=== PATIENT | male | born 1985 | race Two or more races ===

== ENCOUNTER 2021-01-15 15:14 | Outpatient (CLI) | payer OTHER ==
[2021-01-15 15:49] VITALS: BP 106/69
--- NOTE | 2021-01-15 15:49 | SLEEP CARE CONSULTATION ---
Information from patient questionnaire entered by Amara Varela. I have reviewed and concur with the information entered by Amara Varela. This document represents the service I personally performed and the decisions made by me, Ruthann Jackman ARNP. History of Present Illness Service Date and Time: 01/15/2021 1514 Reason for Visit: New patient Chief Complaint: reports: Unrefreshed sleep, Snoring, Excessive daytime sleepiness, Observed pauses in breathing, Fatigue, Frequent awakenings at night Usual bedtime: 10 PM Time it takes to fall asleep: 30 min Snores at night: Yes Observed to quit breathing while asleep: Yes Sleeps alone due to snoring: No Number of times waking at night: Five Reasons for waking at night: reports: Snoring, Other (Unknown reason). denies: Choking, Gasping for air Toss, Turn, or Twitch while sleeping: Yes Recalls having dreams: Yes Usually gets out of bed at: 05:00 AM; weekends til 8-9 AM Feels refreshed in the morning: No Morning headache: Yes (Usually resolves at 08:00 AM; 3 times a week) Sleepy or fatigued during the day: Yes Ever fallen asleep while driving: No Takes day naps: Yes (trying not to take them, 1-2 times a week) Dreams during day naps: No Prior sleep studies: No Additional HPI information: I had the pleasure of seeing TORRES REGAN today regarding the possibility of him having a sleep disorder. His current complaints are excessive daytime sleepiness, fatigue, frequent night awakenings, insomnia, snoring and observed pauses in breathing. His tells him that he snores a lot at night and in the last few months he has been gasping in his sleep. She can still sleep in same room but has threatened to sleep in a different room. He does not wake up feeling rested most mornings and about 3 times a week he wakes up with a headache. He wakes up 4-5 times during the night for no apparent reason. He has woke himself up snoring. There is no family history of sleep apnea. - Parasomnia Symptoms Ever been unable to move upon waking from sleep: Yes Walks in sleep: No Talks in sleep: Yes Ever acted out dreams in sleep: No Ever felt weak in the knees when startled or emotional: Yes Bothered by creepy, crawly, restless sensations in legs: No Problems with memory or concentration: Yes (both, sometimes takes time to think/concentrate for things) Subjective Initial [place] Sleepiness Scale score: 17 (in 2020) Past Medical History Past Medical History: reports: Anxiety, GERD (used to take medication for this but no longer since his anxiety is reduced) Social History The patient's occupation is . Patient is and lives in [place]. Have you smoked in the past 12 months: No Alcohol use: Yes Alcohol amount and frequency: 3 a month Caffeine use: Yes Caffeine amount and frequency: 3 per week Family History Family history of sleep disordered breathing: Yes Family Hx Sleep Apnea: Father: Snoring Allergies and Home Medications Drug allergies reviewed: Yes (NKDA) Allergy and home medication list: Propanolol Review of Systems Weight gain over past 5 years: 20 Cardiovascular: denies: high blood pressure Gastrointestinal: denies: heartburn Urinary: reports: frequency Neurological: reports: headaches Psychiatric: reports: anxiety. denies: depression, mood disorder Ear/Nose/Throat: reports: wisdom teeth removed. denies: tonsillectomy Endocrine: reports: increased urination Immunologic: reports: rash, allergies to food or environment Physical Exam Blood Pressure: 106/69 Cuff size: wrist Heart Rate: 55 O2 Saturation: 95 Height: 5 ft 5 in Weight: 176 lb Body Mass Index: 29.2 BMI Classification: Overweight Nostrils: patent to airflow Mouth and throat: narrow oropharynx Uvula visualization: 25% Mallampati Class III Tongue: enlarged in size with teeth givens on lateral edges Tonsils: 1+ Heart: regular rate and rhythm Lungs: clear bilaterally Impression and Plan 1. Suspected Obstructive Sleep Apnea-Hypopnea Syndrome, as suggested by a history of loud and irregular snoring, observed cessation of breath while asleep , gasping or choking in sleep, morning headache, frequent awakening during the night, unrefreshed sleep, cognitive impairment, and excessive daytime sleepiness. Narrow oropharynx and obesity are common predisposing factors for obstructive sleep apnea-hypopnea syndrome. I recommend proceeding to polysomnography to confirm the diagnosis and to assess severity. If the patient has significant sleep disordered breathing, a manual CPAP titration study will also be performed to find the optimal treatment pressure. I informed the patient of what the sleep studies involve and after some discussion, obtained agreement to proceed. The pathophysiology of obstructive sleep apnea-hypopnea syndrome was discussed with the patient and health risks of cardiovascular and cerebrovascular disease if not treated. Risks of drowsy driving discussed in detail and patient advised to avoid long distance driving and to snout puller at the first sign of drowsiness. Patient agreed to plan. * Schedule polysomnography +- manual CPAP titration study and return in 1-2 weeks after the study to discuss result and initiate therapy. * Avoid long distance driving or driving when feeling sleepy. * Avoid alcohol, sedative and muscle relaxant around bedtime. * Attempt to lose weight. * Review instructions provided by trained office staff on how to prepare for the sleep study. * Return for follow-up after sleep study completed. a Counseling Topics: Weight loss health impact Visit Type: In Office Time Spent with Patient (minutes): 31 Provider Statement: I spent 100% of the Face to Face Visit with the patient with greater than 50% spent counseling the patient and coordination of care.
== END 2021-01-15 15:15 | disposition home or self-care (01) ==
LOC: SC 15:14
PROVIDERS: ATTEND Nurse Practitioner Family
DX: G47.10 Hypersomnia, unspecified (principal); G47.8 Other sleep disorders; R06.81 Apnea, not elsewhere classified; R51.9 Headache, unspecified; R41.89 Other symptoms and signs involving cognitive functions and awareness; E66.3 Overweight; Z68.29 Body mass index [BMI] 29.0-29.9, adult
CPT/HCPCS: 99203; 99212

== ENCOUNTER 2021-02-12 16:43 | Outpatient (CLI) | payer OTHER ==
--- NOTE | 2021-02-12 17:08 | SLEEP CARE CONSULTATION ---
Information from patient questionnaire entered by Amara Varela. I have reviewed and concur with the information entered by Amara Varela. This document represents the service I personally performed and the decisions made by me, Ruthann Jackman ARNP. History of Present Illness Service Date and Time: 02/12/2021 1643 Initial [place] Sleepiness Scale score: 17 (in 2020) Current [place] Sleepiness Scale score: 17 Additional HPI information: TORRES REGAN returns for follow up and results of the recently performed polysomnography. I explained the pathophysiology behind obstructive sleep apnea. We then spent quite a bit of time discussing different treatment options. For mild obstructive sleep apnea, surgery and oral appliance are alternatives to nasal CPAP therapy but in moderate or severe cases, nasal CPAP is the most effective and reliable treatment. Because apnea is primarily in supine position, then positional management therapy could be effective. Methods discussed such as positioning with pillows, using a T-shirt with tennis balls in the back, and shown commercial products that have a pillow format on back to prevent supine sleep. I reviewed the impact of weight changes on sleep apnea and strongly recommended losing weight. After some discussion, the patient opted to go with the nasal CPAP therapy. Nasal autoCPAP set at 4-15 cmH20 will be ordered with rationale explained. A manual titration study will be ordered if unable to find optimal pressure with office adjustments. I explained how CPAP machine works with sample devices [employer] Dreamstation and [employer] [id number] and what to expect when using the machine. Using CPAP every night in order to get used to it was emphasized. Patient advised to put CPAP mask on before getting into bed so as not to fall asleep without CPAP. To assist acclimation to CPAP use, it could also be used for a short time during day while reading or watching TV. The patient was instructed to call the CPAP supplier to discuss any mechanical problem that may occur. If the mask given is uncomfortable or is difficult to keep on through the night even with adjustment, contact the CPAP supplier as many will replace with another mask style if notified before 30 days. If snoring or perceives is not getting enough air or too much air from the machine, notify this office. [facility] patient education PAP tips reviewed and given to patient. Patient counseled not drink alcohol less than 4 hours before bedtime as it can increase snoring and apnea. Patient was cautioned about risks of drowsy driving until sleepiness symptoms resolve. Sleep Study - Results Type of Sleep Study: Polysomnography ([facility]) Prior sleep studies: No Polysomnography/Home Sleep Study results: Interpretation: In-laboratory Attended Nocturnal Polysomnography. The patient had good sleep efficiency. Except for mild sleep fragmentation, the sleep architecture was normal. Respiratory monitoring showed moderate obstructive sleep apnea-hypopnea (AHI = 25.4) associated with frequent arousals, oxyhemoglobin desaturation and moderate hypoxia (liset oxygen saturation of 73.0%). Baseline oxygen saturation was normal. The respiratory events occurred most frequently during supine REM sleep. Snoring was light to loud in intensity. There was no periodic leg movement of sleep. Cardiac rhythm was normal sinus rhythm. No abnormal behavior (parasomnia) observed during the night. Allergies and Home Medications Home medication list reviewed: Yes (no new meds) Review of Systems Review of systems same as previous: Yes (no changes) Physical Exam Heart Rate: 54 O2 Saturation: 98 Height: 5 ft 5 in Weight: 180 lb Body Mass Index: 29.9 BMI Classification: Overweight Impression and Plan 1. Obstructive Sleep Apnea-Hypopnea Syndrome, moderate, with lowest oxygen saturation of 73%. Obviously this is the cause of the patients symptoms of unrefreshed sleep, and excessive daytime sleepiness. Positive pressure therapy could benefit anxiety and gastric reflux. As mentioned above, the patient will be started on nasal autoCPAP therapy with pressure set at 4-15 cmH2O. A manual titration study will be completed if unable to find optimal treatment pressure with office adjustments. Compliance guidelines also reviewed. A copy of compliance guidelines will be given for reference at check out. Because the apnea is more severe supine, I instructed to avoid sleeping supine using pillow positioning until able to start CPAP use. * Nasal auto CPAP therapy, pressure at 4-15 cm H2O. * Attempt to lose weight. * Avoid alcohol consumption near bedtime. * Avoid supine sleep until using CPAP. * The patient is again cautioned about driving until sleepiness completely resolves. * Return one month after CPAP obtained. I will assess response to therapy and compliance at that time. Counseling Topics: Weight loss health impact Visit Type: In Office Time Spent with Patient (minutes): 20 Provider Statement: I spent 100% of the Face to Face Visit with the patient with greater than 50% spent counseling the patient and coordination of care.
== END 2021-02-12 16:44 | disposition home or self-care (01) ==
LOC: SC 16:43
PROVIDERS: ATTEND Nurse Practitioner Family
DX: G47.33 Obstructive sleep apnea (adult) (pediatric) (principal); E66.3 Overweight; Z68.29 Body mass index [BMI] 29.0-29.9, adult
CPT/HCPCS: 99212; 99213

== ENCOUNTER 2021-04-16 15:46 | Outpatient (CLI) | payer OTHER ==
--- NOTE | 2021-04-16 16:16 | SLEEP CARE CONSULTATION ---
Information from patient questionnaire entered by Tricia Bobo. I have reviewed and concur with the information entered by Tricia Bobo. This document represents the service I personally performed and the decisions made by , Ruthann Jackman ARNP. History of Present Illness Service Date and Time: 04/16/2021 1546 Previous diagnosis: Moderate, Obstructive Sleep Apnea-Hypopnea Syndrome AHI: 25.4 (in 2020) Reason for follow up: first compliance Equipment type: CPAP Equipment obtained from: [employer] (getting supplies as needed) Mask style: Nasal Backup mask available: No (will keep old mask when replaced) Last cushion change: 1 month Prior sleep studies: Yes Year and Where: 2020 - [facility] Type of Sleep Study: Polysomnography HPI additional information: TORRES REGAN was diagnosed to have moderate, AHI 25.4, obstructive sleep apnea- hypopnea syndrome and returned today for CPAP therapy first compliance follow- up. CPAP Compliance Data - Data Reviewed with Patient Average duration of nightly device use: 5 hr 15 min Compliance rate %: 73 Current pressure setting (cmH2O): 4-15 (median 5.2, avg 7.2, max 8.0) Humidity settin Average residual AHI: 3.1 Central apnea: 1.7 Obstructive apnea: 0.2 Subjective Missed days of use due to: reports: travel Patient concerns: reports: mask leak noise (when side sleeping). denies: aerophagia, mask discomfort, air blowing in eyes, condensation in mask/hose, nasal congestion, dry mouth, nose, throat, epistaxis, other Observed to snore while using device: No Current pressure setting perceived as: comfortable On therapy, patient: reports: sleeping better, awakening more refreshed, being more awake and alert during the day, more rested overall. denies: drowsiness while driving Initial [place] Sleepiness Scale score: 17 (in 2020) Current [place] Sleepiness Scale score: 13 Allergies and Home Medications Home medication list reviewed: Yes (no changes) Review of Systems Review of systems same as previous: Yes (no changes) Physical Exam Heart Rate: 55 O2 Saturation: 95 Height: 5 ft 5 in Weight: 176 lb Body Mass Index: 29.2 BMI Classification: Overweight Impression and Plan 1. Obstructive Sleep Apnea-Hypopnea Syndrome, moderate, with fair treatment compliance and good apnea control. On CPAP therapy, the patient has better sleep quality and is more rested overall. Patient is satisfied with his treatment and plans to continue use termite inspector. The patients pressure will be changed to autoCPAP 5-8 cmH20. Patient advised to contact me if pressure change is uncomfortable so that it can be adjusted. Goals for apnea control discussed. He has been getting mask leaking when he turns on his sides. Mask leaks can be reduced by washing mask daily and changing mask cushions more frequently to improve mask seal and comfort. Additionally, mask leaks predominately from when patient sleeps on their side can be reduced by using a CPAP pillow. A CPAP pillow sample was shown. This and other styes can be purchased online. Patient's apnea severity and rationale for treatment to reduce apnea, improve sleep quality and reduce cardiovascular and cerebrovascular events was reviewed. I also reviewed the benefit of consistent device use of CPAP for gastric reflux and anxiety. * Change auto CPAP pressure to 5-8 cmH2O * Notify me if snoring with mask or feeling that the pressure is too much or too little * Attempt to lose weight * Call this office if any problems using CPAP * Return for follow up in 1-2 months, or sooner if concerns arise Counseling Topics: Spare mask, Weight loss health impact Visit Type: In Office Time Spent with Patient (minutes): 16 Provider Statement: I spent 100% of the Face to Face Visit with the patient with greater than 50% spent counseling the patient and coordination of care.
== END 2021-04-16 15:47 | disposition home or self-care (01) ==
LOC: SC 15:46
PROVIDERS: ATTEND Nurse Practitioner Family
DX: G47.33 Obstructive sleep apnea (adult) (pediatric) (principal)
CPT/HCPCS: 99212

== ENCOUNTER 2021-06-04 15:50 | Outpatient (CLI) | payer OTHER ==
--- NOTE | 2021-06-04 16:18 | SLEEP CARE CONSULTATION ---
Information from patient questionnaire entered by Amara Varela. I have reviewed and concur with the information entered by Amara Varela. This document represents the service I personally performed and the decisions made by , Ruthann Jackman ARNP. History of Present Illness Service Date and Time: 06/04/2021 1550 Previous diagnosis: Moderate, Obstructive Sleep Apnea-Hypopnea Syndrome AHI: 25.4 (in 2020) Reason for follow up: other (6-week followup - pressure change) Equipment type: CPAP Equipment obtained from: [employer] (getting supplies as needed) Mask style: Nasal Backup mask available: Yes (other mask) Last cushion change: 2 weeks Prior sleep studies: No Year and Where: 2020 - [facility] Type of Sleep Study: Polysomnography HPI additional information: TORRES REGAN was diagnosed to have moderate, AHI 25.4, obstructive sleep apnea- hypopnea syndrome and returned today for CPAP therapy 6 week pressure change follow-up. CPAP Compliance Data - Data Reviewed with Patient Average duration of nightly device use: 2 hours 59 minutes Compliance rate %: 17 Current pressure setting (cmH2O): 5-8 Average residual AHI: 1.5 Central apnea: 0.6 Obstructive apnea: 0.2 Subjective Missed days of use due to: reports: travel, other (Too hot to wear mask in his room; making face sweat) Patient concerns: reports: mask leak noise. denies: aerophagia, mask discomfort, air blowing in eyes, condensation in mask/hose, nasal congestion, dry mouth, nose, throat, epistaxis, other Observed to snore while using device: No (a little bit) Current pressure setting perceived as: comfortable On therapy, patient: reports: sleeping better, awakening more refreshed, being more awake and alert during the day, more rested overall Initial [place] Sleepiness Scale score: 17 (in 2020) Current [place] Sleepiness Scale score: 11 Allergies and Home Medications Home medication list reviewed: Yes (no changes) Review of Systems Review of systems same as previous: Yes (no changes) Physical Exam Heart Rate: 55 O2 Saturation: 98 Height: 5 ft 5 in Weight: 187 lb (with boots) Body Mass Index: 31.1 BMI Classification: Obese Impression and Plan 1. Obstructive Sleep Apnea-Hypopnea Syndrome, moderate, with poor treatment compliance and good apnea control. On CPAP therapy, the patient has better sleep quality and is more rested overall. He had some difficulty wearing the mask because it was very hot in his bedroom and his face with sweat. He states that he has cooling off and he will try to wear it more. He has had times that he lays down and falls asleep without the mask on. I encouraged him to put the mask on when he lays down so he will not forget it. Compliance guidelines reviewed for insurance coverage. Patient was counseled on the difference between meeting compliance and optimal use of CPAP. Optimal use of CPAP is use of CPAP with all sleep to obtain maximum benefit of treatment. Patient is encouraged to use CPAP with all sleep. To prevent falling asleep without CPAP, patient advised to set a bedtime alarm on their phone for use while watching TV on couch or in bed. He voiced understanding and agreement. Patient's apnea severity and ration cedric for treatment to reduce apnea, improve sleep quality and reduce cardiovascular and cerebrovascular events was reviewed. I also reviewed the benefit of consistent device use of CPAP for gastric reflux and anxiety. Patient was encouraged to lose weight for their overall health and to reduce apneas. * Continue auto CPAP pressure at 5-8 cmH2O * Notify me if snoring with mask or feeling that the pressure is too much or too little * Attempt to lose weight * Call this office if any problems using CPAP * Return for follow up in 1-2 months, or sooner if concerns arise Counseling Topics: Spare mask, Weight loss health impact Visit Type: In Office Time Spent with Patient (minutes): 15 Provider Statement: I spent 100% of the Face to Face Visit with the patient with greater than 50% spent counseling the patient and coordination of care.
== END 2021-06-04 15:51 | disposition home or self-care (01) ==
LOC: SC 15:50
PROVIDERS: ATTEND Nurse Practitioner Family
DX: G47.33 Obstructive sleep apnea (adult) (pediatric) (principal); E66.9 Obesity, unspecified; Z68.31 Body mass index [BMI] 31.0-31.9, adult
CPT/HCPCS: 99212

== ENCOUNTER 2021-07-02 16:16 | Outpatient (CLI) | payer OTHER ==
--- NOTE | 2021-07-02 16:53 | SLEEP CARE CONSULTATION ---
Information from patient questionnaire entered by Amara Varela. I have reviewed and concur with the information entered by Amara Varela. This document represents the service I personally performed and the decisions made by , Ruthann Jackman ARNP. History of Present Illness Service Date and Time: 07/02/2021 1616 Previous diagnosis: Moderate, Obstructive Sleep Apnea-Hypopnea Syndrome AHI: 25.4 (in 2020) Reason for follow up: one month (followup) Equipment type: CPAP Equipment obtained from: [employer] (getting supplies as needed) Mask style: Nasal Backup mask available: Yes (old mask) Last cushion change: 1 week ago Prior sleep studies: No Year and Where: 2020 - [facility] Type of Sleep Study: Polysomnography HPI additional information: TORRES REGAN was diagnosed to have moderate, AHI 25.4, obstructive sleep apnea- hypopnea syndrome and returned today for CPAP therapy one month follow-up. CPAP Compliance Data - Data Reviewed with Patient Average duration of nightly device use: 4 h 28 min Compliance rate %: 47 Current pressure setting (cmH2O): 5-8 Average residual AHI: 2.0 Central apnea: 0.9 Obstructive apnea: 0.3 Subjective Missed days of use due to: reports: travel, other Patient concerns: reports: mask discomfort, mask leak noise (depends on how he is sleeping). denies: aerophagia, air blowing in eyes, condensation in mas k/hose, nasal congestion, dry mouth, nose, throat, epistaxis, other Observed to snore while using device: No Current pressure setting perceived as: comfortable On therapy, patient: reports: sleeping better, awakening more refreshed, being more awake and alert during the day, more rested overall. denies: drowsiness while driving Initial [place] Sleepiness Scale score: 17 (in 2020) Current [place] Sleepiness Scale score: 18 Allergies and Home Medications Home medication list reviewed: Yes (no changes) Review of Systems Review of systems same as previous: No (allergy testing: allergic to red meat) Physical Exam Heart Rate: 54 O2 Saturation: 96 Height: 5 ft 5 in Weight: 187 lb (with boots) Body Mass Index: 31.1 BMI Classification: Obese Impression and Plan 1. Obstructive Sleep Apnea-Hypopnea Syndrome, moderate, with poor treatment compliance and good apnea control. On CPAP therapy, the patient has better sleep quality and is more rested overall. Patient has been able to bring up his compliance. He had reduced compliance over the summer because he had difficulty wearing his mask when it was very hot. We again discussed increasing time in the mask to help reduce his daytime sleepiness and fatigue and he voiced understanding. Patient also encouraged to try to lose weight as this will also help him to feel better and reduce apneas. Patient voiced understanding and agreement with plan care. Patient's apnea severity and rationale for treatment to reduce apnea, improve sleep quality and reduce cardiovascular and cerebrovascular events was reviewed. * Continue auto CPAP pressure at 5-8 cmH2O * Notify me if snoring with mask or feeling that the pressure is too much or too little * Attempt to lose weight * Call this office if any problems using CPAP * Return for follow up in 3 months, or sooner if concerns arise Counseling Topics: Spare mask, Weight loss health impact Visit Type: In Office Time Spent with Patient (minutes): 13 Provider Statement: I spent 100% of the Face to Face Visit with the patient with greater than 50% spent counseling the patient and coordination of care.
== END 2021-07-02 16:17 | disposition home or self-care (01) ==
LOC: SC 16:16
PROVIDERS: ATTEND Nurse Practitioner Family
DX: G47.33 Obstructive sleep apnea (adult) (pediatric) (principal); E66.9 Obesity, unspecified; Z68.31 Body mass index [BMI] 31.0-31.9, adult
CPT/HCPCS: 99212

== ENCOUNTER 2021-10-01 14:07 | Outpatient (CLI) | payer OTHER ==
[2021-10-01 14:42] VITALS: BP 116/76
--- NOTE | 2021-10-01 14:42 | SLEEP CARE CONSULTATION ---
Information from patient questionnaire entered by Juan Miguel Kirkland MA. I have reviewed and concur with the information entered by Juan Miguel Kirkland MA. This document represents the service I personally performed and the decisions made by , Ruthann Jackman ARNP. History of Present Illness Service Date and Time: 10/01/2021 1407 Previous diagnosis: Moderate, Obstructive Sleep Apnea-Hypopnea Syndrome AHI: 25.4 (in 2020) Reason for follow up: one month Equipment type: CPAP Equipment obtained from: [employer] (getting supplies as needed) Mask style: Nasal Backup mask available: Yes (old mask) Last cushion change: 2 days ago Prior sleep studies: No Year and Where: 2020 - [facility] Type of Sleep Study: Polysomnography HPI additional information: TORRES REGAN was diagnosed to have moderate, AHI 25.4, obstructive sleep apnea- hypopnea syndrome and returned today for CPAP therapy three month follow-up. Sleep Study - Results Type of Sleep Study: Polysomnography Prior sleep studies: No Year and Where: 2020 - [facility] CPAP Compliance Data - Data Reviewed with Patient Average duration of nightly device use: 3 hours 53 minutes Compliance rate %: 42 Current pressure setting (cmH2O): 5-8 Average residual AHI: 2.0 Central apnea: 1.0 Obstructive apnea: .4 Subjective Patient concerns: reports: mask discomfort (skin irritation from mask, especially when hot/warm). denies: aerophagia, air blowing in eyes, mask leak noise, condensation in mask/hose, nasal congestion, dry mouth, nose, throat, epistaxis Observed to snore while using device: Yes (occasionally, per his ) Current pressure setting perceived as: comfortable On therapy, patient: reports: sleeping better, more rested overall. denies: drowsiness while driving Initial [place] Sleepiness Scale score: 17 (in 2020) Current [place] Sleepiness Scale score: 13 (2021) Allergies and Home Medications Home medication list reviewed: Yes (no changes) Review of Systems Review of systems same as previous: Yes (no changes) Physical Exam Vital signs obtained and entered by: PAUL LITTLE CMA Blood Pressure: 116/76 (right) Cuff size: wrist Heart Rate: 68 O2 Saturation: 98 (paper mask) Height: 5 ft 5 in Weight: 175 lb (without clothes) Body Mass Index: 29.1 BMI Classification: Overweight Impression and Plan 1. Obstructive Sleep Apnea-Hypopnea Syndrome, moderate, with fair treatment compliance and good apnea control. On CPAP therapy, the patient has better sleep quality and is more rested overall. Patient is wearing his mask 82% of the time but he is just a few minutes under the 4 hours half of the time. I encouraged him to try to make sure he gets at least that 4 hours to increase his compliance. He voiced understanding and agreement. Patient states by October [place]. I encouraged him to go through his primary doctor there to establish with a sleep provider once he moves. He voiced understanding. Patient's apnea severity and rationale for treatment to reduce apnea, improve sleep quality and reduce cardiovascular and cerebrovascular events was reviewed. Patient was encouraged to lose weight for their overall health and to reduce apneas. * Continue auto CPAP pressure at 5-8 cmH2O * Notify me if snoring with mask or feeling that the pressure is too much or too little * Attempt to lose weight * Call this office if any problems using CPAP * Return for follow up in 6 months, or sooner if concerns arise Counseling Topics: Spare mask, Weight loss health impact Visit Type: In Office Time Spent with Patient (minutes): 20 Provider Statement: I spent 100% of the Face to Face Visit with the patient with greater than 50% spent counseling the patient and coordination of care.
== END 2021-10-01 14:08 | disposition home or self-care (01) ==
LOC: SC 14:07
PROVIDERS: ATTEND Nurse Practitioner Family
DX: G47.33 Obstructive sleep apnea (adult) (pediatric) (principal)
CPT/HCPCS: 99212; 99213